=== PATIENT | male | born 1945 | race Two or more races ===

== ENCOUNTER 2024-07-03 10:09 | Emergency (ER) | payer MEDICARE ==
[~2024-07-03] VITALS: Ht 182.9 cm; Wt 77.1 kg
[2024-07-03 10:12] VITALS: TEMP 98.2
[2024-07-03 10:59] LABS: BASOPHILS % (AUTO) 0.3 % (0.0-2.0); EOSINOPHILS # (AUTO) 0.1 K/uL (0.0-0.7); HEMATOCRIT 36 % (39-51); HEMOGLOBIN 12.1 g/dL (13.5-17.5); LYMPHOCYTES # (AUTO) 1.9 K/uL (0.8-4.8); LYMPHOCYTES % (AUTO) 33.5 % (20.0-44.0); MEAN CORPUSCULAR HEMOGLOBIN 35 PG (26.0-33.0); MEAN CORPUSCULAR HGB CONC 34 g/dl (31.0-36.0); MEAN CORPUSCULAR VOLUME 103 fL (80-96); MONOCYTES # (AUTO) 0.7 K/uL (0.1-1.30); MONOCYTES % (AUTO) 12.2 % (2.0-12.0); PLATELET COUNT (AUTO) 134 K/uL (150-450); RED BLOOD CELL COUNT(AUTO) 3.49 MIL/uL (4.5-6.0); RED CELL DISTRIBUTION WIDTH 13.9 % (11.5-15.0); WHITE BLOOD COUNT (AUTO) 5.7 K/uL (4.3-11.0)
[2024-07-03 11:14] LABS: INR 1.02 (0.91-1.10); PARTIAL THROMBOPLASTIN TIME 28.5 SEC (24.3-34.3); PROTHROMBIN TIME 10.8 SECS (9.2-11.1)
[2024-07-03 11:41] LABS: ACETAMINOPHEN <10 ug/ml (10-30); ALANINE AMINOTRANSFERASE 20 U/L (12-78); ALBUMIN 3.8 g/dL (3.4-5.0); ALKALINE PHOSPHATASE 165 U/L (46-116); ASPARTATE AMINOTRANSFERASE 24 U/L (15-37); BILIRUBIN,DIRECT 0.2 mg/dL (0.0-0.2); BILIRUBIN,TOTAL 0.5 mg/dL (0.2-1.0); CALCIUM, SERUM 9.4 mg/dL (8.5-10.1); CARBON DIOXIDE 27 mmol/L (21-32); CREATININE 1.3 mg/dL (0.6-1.3); GLUCOSE 115 mg/dL (74-106); SALICYLATE 1.5 mg/dL (2.8-20.0); TOTAL PROTEIN, SERUM 7.8 g/dL (6.4-8.2); UREA NITROGEN, BLOOD 29 mg/dL (7-18)
[2024-07-03 11:42] LABS: MAGNESIUM 2.2 mg/dL (1.8-2.4)
[2024-07-03 11:45] LABS: CHLORIDE 103 mmol/L (98-107); POTASSIUM 4.4 mmol/L (3.5-5.1); SODIUM SERUM 139 mmol/L (136-145)
[2024-07-03] MEDS ORDERED: LIDOCAINE 2% JEL UROJET 10 ML MM ONE (13:52)
[2024-07-03] MEDS ORDERED: TAMS-12 PO (14:29)
[2024-07-03 15:11] VITALS: BP 121/66; O2SAT 98
== END 2024-07-03 15:12 | disposition home or self-care (01) ==
LOC: ER 10:14
DX: R20.2 Paresthesia of skin (principal); N40.1 Benign prostatic hyperplasia with lower urinary tract symptoms; R20.0 Anesthesia of skin; R33.8 Other retention of urine; R07.9 Chest pain, unspecified; R41.82 Altered mental status, unspecified; M79.605 Pain in left leg; M79.604 Pain in right leg; E11.9 Type 2 diabetes mellitus without complications; I10 Essential (primary) hypertension
CPT/HCPCS: 99285; 70450; 71045; 51702; 75635; 85025; 80048; 80076; 83735; 36415; 84439; 84443; 84484 ×2; 85730; 80143; 93005; J3490; J7050; Q9967